=== PATIENT | female | born 1980 | race Caucasian/White ===

== ENCOUNTER → 2020-08-29 | Outpatient (CLI) | payer OTHER ==
[~2020-08-29] MED LIST: CYCLOBENZAPRINE10 MG PO; TYLENOL EXTRA500 MG PO
== END ==
LOC: KOH-I 08-28 10:00
DX: M51.37 Other intervertebral disc degeneration, lumbosacral region (principal); M51.87 Other intervertebral disc disorders, lumbosacral region
CPT/HCPCS: 72131

== ENCOUNTER → 2020-09-01 | Outpatient (CLI) | payer OTHER ==
[2020-09-01 11:07] LABS: HEMOGLOBIN 14.5 gm/dl (12.3-15.3); RED BLOOD COUNT 4.43 M/UL (4.00-5.10)
[2020-09-01 11:44] LABS: BUN/CREATININE RATIO 21 (0-10)
== END ==
LOC: EDSTATUS 10:00 → OPSV2 10:00
PROVIDERS: Orthopaedic Surgery
DX: Z01.812 Encounter for preprocedural laboratory examination (principal); M51.36 Other intervertebral disc degeneration, lumbar region; M54.16 Radiculopathy, lumbar region
CPT/HCPCS: 36415; 80048; 81001; 85027; 85610; 85730; 87081; 87086; 93005

== ENCOUNTER → 2020-09-10 | Outpatient (CLI) | payer OTHER | LOC: LAB 13:56 | DX: Z01.812 Encounter for preprocedural laboratory examination (principal) | CPT/HCPCS: 86850; 86900; 86901 ==

== ENCOUNTER 2020-09-11 06:08 | Inpatient (IN) | payer OTHER ==
[~2020-09-11] VITALS: Ht 160 cm; Wt 47.2 kg
[2020-09-11 12:33] LABS: HEMOGLOBIN 12.9 gm/dl (12.3-15.3); RED BLOOD COUNT 4.03 M/UL (4.00-5.10); WHITE BLOOD COUNT 5.8 K/UL (4.5-11.0)
[2020-09-11 12:55] LABS: BUN/CREATININE RATIO 21 (0-10)
[2020-09-12 07:16] LABS: HEMOGLOBIN 10.9 gm/dl (12.3-15.3); RED BLOOD COUNT 3.37 M/UL (4.00-5.10); WHITE BLOOD COUNT 9.5 K/UL (4.5-11.0)
[2020-09-12 07:32] LABS: BUN/CREATININE RATIO 16 (0-10)
[2020-09-13 07:47] LABS: HEMOGLOBIN 11.2 gm/dl (12.3-15.3); RED BLOOD COUNT 3.64 M/UL (4.00-5.10); WHITE BLOOD COUNT 7.7 K/UL (4.5-11.0)
[2020-09-13 08:12] LABS: BUN/CREATININE RATIO 15 (0-10)
[2020-09-14 03:16] LABS: RED BLOOD COUNT 3.41 M/UL (4.00-5.10); WHITE BLOOD COUNT 7.2 K/UL (4.5-11.0)
[2020-09-14 03:51] LABS: BUN/CREATININE RATIO 14 (0-10)
== END 2020-09-14 15:10 | disposition home or self-care (01) | DRG 454 ==
LOC: OR 06:08 → CCU 13:37 → OR 13:37 → CCU 09-13 20:19 → M/S 09-13 20:19 → OR 09-13 20:19 → M/S 09-13 20:19 → OR 09-14 15:10 → M/S 09-14 15:10
PROVIDERS: Internal Medicine Infectious Disease; Physician Assistant; ADMIT Orthopaedic Surgery
PROC: 0SB40ZZ Excision of Lumbosacral Disc, Open Approach (ICD-10-PCS; 2020-09-11)
PROC: 01NB0ZZ Release Lumbar Nerve, Open Approach (ICD-10-PCS; 2020-09-11)
PROC: 0SG3071 Fusion of Lumbosacral Joint with Autologous Tissue Substitute, Posterior Approach, Posterior Column, Open Approach (ICD-10-PCS; 2020-09-11)
PROC: 01NR0ZZ Release Sacral Nerve, Open Approach (ICD-10-PCS; 2020-09-11)
PROC: 4A10X4G Monitoring of Central Nervous Electrical Activity, Intraoperative, External Approach (ICD-10-PCS; 2020-09-11)
PROC: 0SG30AJ Fusion of Lumbosacral Joint with Interbody Fusion Device, Posterior Approach, Anterior Column, Open Approach (ICD-10-PCS; principal; 2020-09-11 07:30)
DX: M51.17 Intervertebral disc disorders with radiculopathy, lumbosacral region (principal); E44.1 Mild protein-calorie malnutrition; Z68.1 Body mass index [BMI] 19.9 or less, adult; K21.9 Gastro-esophageal reflux disease without esophagitis; I95.2 Hypotension due to drugs; T50.995A Adverse effect of other drugs, medicaments and biological substances, initial encounter; Z20.822 Contact with and (suspected) exposure to COVID-19; M19.90 Unspecified osteoarthritis, unspecified site; R00.0 Tachycardia, unspecified; Z90.49 Acquired absence of other specified parts of digestive tract; Z98.51 Tubal ligation status; Z90.710 Acquired absence of both cervix and uterus; Z80.0 Family history of malignant neoplasm of digestive organs; Z80.3 Family history of malignant neoplasm of breast; Z80.2 Family history of malignant neoplasm of other respiratory and intrathoracic organs
CPT/HCPCS: 36415; 72100; 72110; 76000; 80048; 80053; 82962; 83735; 84443; 85025; 85027; 97116-GP-CQ; 97161; 97166; 97535; C1713; C1762; C1781; J0690; J1040; J1100; J1170; J1644; J2001; J2250; J2405; J2704; J3010; J3370; J7040; J7120